=== PATIENT | female | born 1955 | race African-American/Black ===

== ENCOUNTER 2021-02-21 22:30 | Inpatient (IN) | payer MEDICARE, MEDICAID ==
[~2021-02-21] VITALS: Ht 167.6 cm; Wt 82.6 kg
[2021-02-21 22:30] VITALS: BP_SYST 111; BP_SYST 115; BP_DIAS 60
[~2021-02-21 22:30] MED LIST: ALBU18HF2 IH; ASPI-867 MT; DICL100G31 TP; ERGO2000; FERR325T6 MT; FLUT1DIS6 INH; GABA800T97 MT; HYDR-4067 MT; LIRA0.6P SQ; LIRA0.6P2 SQ; LUBI24CA5 MT; MONT10TA32 MT; OMEP10CA5 MT; PROM25TA13 MT; ROSU5TAB MT
[2021-02-21] MEDS ORDERED: ONDANSETRON HCL 4MG/2ML INJ IV PRN (23:15)
[2021-02-21] MEDS ORDERED: ZOLPIDEM TARTRATE 5MG TABLET PO PRN (23:15)
[2021-02-21] MEDS ORDERED: CLONIDINE 0.1MG TABLET PO PRN (23:15)
[2021-02-21] MEDS ORDERED: GUAIFENESIN 200MG/10ML SUGAR FREE UDC PO PRN (23:15)
[2021-02-21] MEDS ORDERED: IPRATROPIUM/ALBUTEROL 0.5-3(2.5)MG/3ML NEB HHN PRN (23:15)
[2021-02-21] MEDS ORDERED: DEXTROSE 50% WATER 50ML SYRINGE IV PRN (23:45)
[2021-02-22] MEDS: BLOOD SUGAR DIAGNOSTIC STRIP TEST SCH ×4 (06:42→21:04)
[2021-02-22] MEDS: SODIUM CHLORIDE 0.9% INJ 3ML FLUSH IVF SCH ×3 (06:51→21:37)
[2021-02-22 08:12] VITALS: BP 110/67
[2021-02-22] MEDS: INSULIN LISPRO 100 UNITS/ML SUBCUT SCH ×4 (09:00→21:37)
[2021-02-22] MEDS ORDERED: FAMOTIDINE 20MG/2ML VIAL IV SCH (09:00)
[2021-02-22] MEDS: ASPIRIN 81MG EC TABLET PO SCH (09:03)
[2021-02-22] MEDS: FUROSEMIDE 40MG TABLET PO SCH (09:03)
[2021-02-22] MEDS: FAMOTIDINE 20MG TABLET PO SCH (09:03)
[2021-02-22] MEDS: SPIRONOLACTONE 25MG TABLET PO SCH (09:03)
[2021-02-22] MEDS: ENOXAPARIN 40MG/0.4ML SYR SUBCUT SCH (09:03)
[2021-02-22] MEDS: CARVEDILOL 12.5MG TABLET PO SCH ×2 (09:04→21:01)
[2021-02-22] MEDS: LOSARTAN POTASSIUM 50 MG TABLET PO SCH ×2 (10:26→21:01)
[2021-02-22] MEDS: ACETAMINOPHEN 325MG TABLET PO PRN ×2 (10:29→21:03)
[2021-02-22 12:54] LABS: HEMATOCRIT. 32.7 % (36.0-48.0); HEMOGLOBIN. 10.9 g/dL (12.0-16.0); MEAN CORPUSCULAR HEMOGLOBIN 27.9 pg (28.0-32.0); MEAN CORPUSCULAR VOLUME 83.6 fL (81.0-99.0); MEAN PLATELET VOLUME 10.2 fl (7.4-10.4); PLATELET 149 x1000/uL (130-400); RED BLOOD CELL COUNT 3.92 mill/uL (4.2-5.4); RED CELL DISTRIBUTION WIDTH 21.7 % (11.6-14.6)
[2021-02-22 13:04] LABS: CHLORIDE 104 mEq/L (98-107)
[2021-02-22 17:59] LABS: PLATELET ESTIMATE NORMAL
[2021-02-22 18:08] LABS: VITAMIN B12 SERUM 1485 pg/mL (211-911)
[2021-02-22] MEDS ORDERED: POTASSIUM CHLORIDE 20MEQ TABLET SR PO NR ×2 (18:15→22:00)
[2021-02-22] MEDS ORDERED: BISACODYL 10MG SUPP PR PRN (19:30)
[2021-02-22 20:00] VITALS: BP 129/63
[2021-02-22] MEDS ORDERED: MAGNESIUM 2 G PREMIX 50 ML IV NR (20:00)
[2021-02-22] MEDS ORDERED: QUETIAPINE FUMARATE 50MG TABLET PO SCH ×3 (21:00)
[2021-02-22] MEDS: LACTULOSE 20G/30ML UDC PO PRN (21:03)
[2021-02-22 23:11] VITALS: BP 129/63
[2021-02-23] MEDS: BLOOD SUGAR DIAGNOSTIC STRIP TEST SCH ×4 (07:00→20:41)
[2021-02-23 07:48] VITALS: BP 139/73
[2021-02-23] MEDS: ASPIRIN 81MG EC TABLET PO SCH (08:56)
[2021-02-23] MEDS: FUROSEMIDE 40MG TABLET PO SCH (08:56)
[2021-02-23] MEDS: SENNOSIDES/DOCUSATE SOD 8.6/50MG TABLET PO PRN (08:57)
[2021-02-23] MEDS: LOSARTAN POTASSIUM 50 MG TABLET PO SCH ×2 (08:57→20:35)
[2021-02-23] MEDS: FAMOTIDINE 20MG TABLET PO SCH (08:57)
[2021-02-23] MEDS: SPIRONOLACTONE 25MG TABLET PO SCH (08:57)
[2021-02-23] MEDS: INSULIN LISPRO 100 UNITS/ML SUBCUT SCH ×4 (09:00→20:41)
[2021-02-23] MEDS: CARVEDILOL 12.5MG TABLET PO SCH (10:10)
[2021-02-23] MEDS: ENOXAPARIN 40MG/0.4ML SYR SUBCUT SCH (10:19)
[2021-02-23] MEDS: LACTULOSE 20G/30ML UDC PO PRN (12:46)
[2021-02-23] MEDS: SODIUM CHLORIDE 0.9% INJ 3ML FLUSH IVF SCH ×2 (13:08→20:41)
[2021-02-23 20:00] VITALS: BP 173/100
[2021-02-23] MEDS: CARVEDILOL 6.25 MG TABLET PO SCH (20:41)
[2021-02-24] MEDS: BLOOD SUGAR DIAGNOSTIC STRIP TEST SCH ×4 (06:20→20:40)
[2021-02-24] MEDS: SODIUM CHLORIDE 0.9% INJ 3ML FLUSH IVF SCH ×3 (06:35→20:41)
[2021-02-24] MEDS: INSULIN LISPRO 100 UNITS/ML SUBCUT SCH ×4 (07:33→20:40)
[2021-02-24 07:53] VITALS: BP 145/108
[2021-02-24] MEDS: ASPIRIN 81MG EC TABLET PO SCH (08:48)
[2021-02-24] MEDS: FUROSEMIDE 40MG TABLET PO SCH (08:48)
[2021-02-24] MEDS: LOSARTAN POTASSIUM 50 MG TABLET PO SCH ×2 (08:48→20:36)
[2021-02-24] MEDS: ENOXAPARIN 40MG/0.4ML SYR SUBCUT SCH (08:48)
[2021-02-24] MEDS: FAMOTIDINE 20MG TABLET PO SCH (08:48)
[2021-02-24] MEDS: SPIRONOLACTONE 25MG TABLET PO SCH (08:48)
[2021-02-24] MEDS: CARVEDILOL 6.25 MG TABLET PO SCH ×2 (08:49→20:36)
[2021-02-24] MEDS: ACETAMINOPHEN 325MG TABLET PO PRN (08:49)
[2021-02-24] MEDS ORDERED: NA PHOS,M-B/NA PHOS,DI-BA ENEMA 118ML PR PRN (09:00)
[2021-02-24 20:00] VITALS: BP 119/78
[2021-02-24] MEDS: QUETIAPINE FUMARATE 50MG TABLET PO SCH (20:35)
[2021-02-25] MEDS: ACETAMINOPHEN 325MG TABLET PO PRN ×2 (04:02→19:22)
[2021-02-25] MEDS: DIPHENHYDRAMINE 50MG/ML VIAL IV PRN ×2 (06:38→19:22)
[2021-02-25] MEDS: BLOOD SUGAR DIAGNOSTIC STRIP TEST SCH ×4 (06:42→21:45)
[2021-02-25] MEDS: SODIUM CHLORIDE 0.9% INJ 3ML FLUSH IVF SCH ×3 (06:42→21:45)
[2021-02-25] MEDS: INSULIN LISPRO 100 UNITS/ML SUBCUT SCH ×4 (06:42→21:00)
[2021-02-25 08:00] VITALS: BP 119/62
[2021-02-25] MEDS: ENOXAPARIN 40MG/0.4ML SYR SUBCUT SCH (09:22)
[2021-02-25] MEDS: FUROSEMIDE 40MG TABLET PO SCH (09:22)
[2021-02-25] MEDS: ASPIRIN 81MG EC TABLET PO SCH (09:22)
[2021-02-25] MEDS: CARVEDILOL 6.25 MG TABLET PO SCH ×2 (09:22→20:52)
[2021-02-25] MEDS: LOSARTAN POTASSIUM 50 MG TABLET PO SCH ×2 (09:23→20:53)
[2021-02-25] MEDS: FAMOTIDINE 20MG TABLET PO SCH (09:23)
[2021-02-25] MEDS: SPIRONOLACTONE 25MG TABLET PO SCH (09:23)
[2021-02-25] MEDS: LACTULOSE 20G/30ML UDC PO PRN (14:00)
[2021-02-25 14:41] LABS: CHLORIDE 103 mEq/L (98-107)
[2021-02-25 20:00] VITALS: BP 146/91
[2021-02-25] MEDS: DICLOFENAC SODIUM 75MG DR (EC) TABLET PO SCH (20:51)
[2021-02-25] MEDS: QUETIAPINE FUMARATE 50MG TABLET PO SCH (20:52)
[2021-02-26] MEDS: DIPHENHYDRAMINE 50MG/ML VIAL IV PRN (05:29)
[2021-02-26] MEDS: ACETAMINOPHEN 325MG TABLET PO PRN (05:35)
[2021-02-26] MEDS: SODIUM CHLORIDE 0.9% INJ 3ML FLUSH IVF SCH ×2 (06:17→14:00)
[2021-02-26] MEDS: BLOOD SUGAR DIAGNOSTIC STRIP TEST SCH ×4 (06:59→21:05)
[2021-02-26 08:01] VITALS: BP 136/65
[2021-02-26] MEDS: INSULIN LISPRO 100 UNITS/ML SUBCUT SCH ×4 (09:00→21:00)
[2021-02-26] MEDS: LOSARTAN POTASSIUM 50 MG TABLET PO SCH ×2 (09:16→20:40)
[2021-02-26] MEDS: FAMOTIDINE 20MG TABLET PO SCH (09:16)
[2021-02-26] MEDS: SPIRONOLACTONE 25MG TABLET PO SCH (09:16)
[2021-02-26] MEDS: ASPIRIN 81MG EC TABLET PO SCH (09:16)
[2021-02-26] MEDS: FUROSEMIDE 40MG TABLET PO SCH (09:17)
[2021-02-26] MEDS: CARVEDILOL 6.25 MG TABLET PO SCH (09:17)
[2021-02-26] MEDS: DICLOFENAC SODIUM 75MG DR (EC) TABLET PO SCH ×2 (09:17→20:40)
[2021-02-26] MEDS: ENOXAPARIN 40MG/0.4ML SYR SUBCUT SCH (09:21)
[2021-02-26 20:00] VITALS: BP 122/92
[2021-02-26] MEDS: GABAPENTIN 300MG CAPSULE PO SCH (20:40)
[2021-02-26] MEDS: QUETIAPINE FUMARATE 50MG TABLET PO SCH (20:41)
[2021-02-26] MEDS: SODIUM CHLORIDE 0.9% INJ 10ML FLUSH IVF SCH (21:04)
[2021-02-27] MEDS: SODIUM CHLORIDE 0.9% INJ 10ML FLUSH IVF SCH ×3 (06:32→21:20)
[2021-02-27] MEDS: BLOOD SUGAR DIAGNOSTIC STRIP TEST SCH ×4 (06:50→21:16)
[2021-02-27 08:00] VITALS: BP 112/67
[2021-02-27] MEDS: ASPIRIN 81MG EC TABLET PO SCH (08:27)
[2021-02-27] MEDS: FUROSEMIDE 40MG TABLET PO SCH (08:27)
[2021-02-27] MEDS: SPIRONOLACTONE 25MG TABLET PO SCH (08:27)
[2021-02-27] MEDS: LOSARTAN POTASSIUM 50 MG TABLET PO SCH ×2 (08:28→21:00)
[2021-02-27] MEDS: FAMOTIDINE 20MG TABLET PO SCH (08:28)
[2021-02-27] MEDS: ENOXAPARIN 40MG/0.4ML SYR SUBCUT SCH (08:28)
[2021-02-27] MEDS: DICLOFENAC SODIUM 75MG DR (EC) TABLET PO SCH ×2 (08:28→21:16)
[2021-02-27] MEDS: INSULIN LISPRO 100 UNITS/ML SUBCUT SCH ×4 (08:29→21:00)
[2021-02-27] MEDS: ACETAMINOPHEN 325MG TABLET PO PRN (14:38)
[2021-02-27 15:26] LABS: BASOPHILS % 0.9 % (0.0-2.0); EOSINOPHILS % 2.8 % (0.0-5.0); HEMATOCRIT. 33.5 % (36.0-48.0); HEMOGLOBIN. 11.3 g/dL (12.0-16.0); LYMPHOCYTES % 47.1 % (20.0-50.0); MEAN CORPUSCULAR HEMOGLOBIN 28.1 pg (28.0-32.0); MEAN CORPUSCULAR VOLUME 83.6 fL (81.0-99.0); MEAN PLATELET VOLUME 9.9 fl (7.4-10.4); MONOCYTES % 14.9 % (2.0-8.0); NEUTROPHILS % 34.3 % (40.0-76.0); PLATELET 139 x1000/uL (130-400); RED BLOOD CELL COUNT 4.01 mill/uL (4.2-5.4); RED CELL DISTRIBUTION WIDTH 22.3 % (11.6-14.6)
[2021-02-27 20:00] VITALS: BP 140/77
[2021-02-27] MEDS: GABAPENTIN 300MG CAPSULE PO SCH (21:15)
[2021-02-27] MEDS: QUETIAPINE FUMARATE 50MG TABLET PO SCH (21:16)
[2021-02-28] MEDS: BLOOD SUGAR DIAGNOSTIC STRIP TEST SCH ×4 (06:14→21:00)
[2021-02-28] MEDS: SODIUM CHLORIDE 0.9% INJ 10ML FLUSH IVF SCH ×3 (06:14→22:42)
[2021-02-28] MEDS: INSULIN LISPRO 100 UNITS/ML SUBCUT SCH ×4 (06:15→21:00)
[2021-02-28 08:09] VITALS: BP 132/84
[2021-02-28 08:20] VITALS: BP 122/80
[2021-02-28] MEDS: DICLOFENAC SODIUM 75MG DR (EC) TABLET PO SCH ×2 (08:23→20:43)
[2021-02-28] MEDS: LOSARTAN POTASSIUM 50 MG TABLET PO SCH ×2 (08:23→20:43)
[2021-02-28] MEDS: FUROSEMIDE 40MG TABLET PO SCH (08:23)
[2021-02-28] MEDS: FAMOTIDINE 20MG TABLET PO SCH (08:24)
[2021-02-28] MEDS: ASPIRIN 81MG EC TABLET PO SCH (08:24)
[2021-02-28] MEDS: SPIRONOLACTONE 25MG TABLET PO SCH (08:24)
[2021-02-28] MEDS: ENOXAPARIN 40MG/0.4ML SYR SUBCUT SCH (08:24)
[2021-02-28] MEDS: LACTULOSE 20G/30ML UDC PO PRN (08:24)
[2021-02-28] MEDS: ACETAMINOPHEN 325MG TABLET PO PRN ×2 (08:25→20:43)
[2021-02-28 20:00] VITALS: BP 137/81
[2021-02-28] MEDS: SENNOSIDES/DOCUSATE SOD 8.6/50MG TABLET PO PRN (20:42)
[2021-02-28] MEDS: GABAPENTIN 300MG CAPSULE PO SCH (20:43)
[2021-03-01] MEDS: DIPHENHYDRAMINE 50MG/ML VIAL IV PRN (01:44)
[2021-03-01] MEDS: ACETAMINOPHEN 325MG TABLET PO PRN ×2 (01:45→08:39)
[2021-03-01] MEDS: SODIUM CHLORIDE 0.9% INJ 10ML FLUSH IVF SCH ×3 (06:28→22:21)
[2021-03-01] MEDS: BLOOD SUGAR DIAGNOSTIC STRIP TEST SCH ×4 (06:29→21:00)
[2021-03-01] MEDS: INSULIN LISPRO 100 UNITS/ML SUBCUT SCH ×4 (07:08→22:22)
[2021-03-01 07:58] VITALS: BP 157/115
[2021-03-01] MEDS: ASPIRIN 81MG EC TABLET PO SCH (08:19)
[2021-03-01] MEDS: DICLOFENAC SODIUM 75MG DR (EC) TABLET PO SCH ×2 (08:19→22:17)
[2021-03-01] MEDS: FUROSEMIDE 40MG TABLET PO SCH (08:19)
[2021-03-01] MEDS: SPIRONOLACTONE 25MG TABLET PO SCH (08:19)
[2021-03-01] MEDS: LOSARTAN POTASSIUM 50 MG TABLET PO SCH ×2 (08:19→22:20)
[2021-03-01] MEDS: FAMOTIDINE 20MG TABLET PO SCH (08:19)
[2021-03-01] MEDS: LACTULOSE 20G/30ML UDC PO PRN (08:23)
[2021-03-01] MEDS: ENOXAPARIN 40MG/0.4ML SYR SUBCUT SCH (08:23)
[2021-03-01 10:08] VITALS: BP 150/102
[2021-03-01] MEDS ORDERED: CARVEDILOL 6.25 MG TABLET PO NR (10:24)
[2021-03-01] MEDS ORDERED: FUROSEMIDE 100MG/10ML VIAL IVP NR (10:30)
[2021-03-01] MEDS ORDERED: POTASSIUM CHLORIDE 20MEQ TABLET SR PO NR (10:30)
[2021-03-01] MEDS ORDERED: QUETIAPINE FUMARATE 50MG TABLET PO NR (11:45)
[2021-03-01 17:51] LABS: CLARITY URINE CLEAR (CLEAR); COLOR URINE YELLOW (YELLOW); KETONES URINE NEGATIVE (NEGATIVE); LEUKOCYTE ESTERASE URINE NEGATIVE (NEGATIVE); NITRITE URINE NEGATIVE (NEGATIVE); OCCULT BLOOD URINE NEGATIVE (NEGATIVE); PROTEIN URINE NEGATIVE (NEGATIVE); SPECIFIC GRAVITY URINE 1.009 (1.005-1.030)
[2021-03-01] MEDS: SENNOSIDES/DOCUSATE SOD 8.6/50MG TABLET PO PRN (17:58)
[2021-03-01 20:00] VITALS: BP 139/97
[2021-03-01] MEDS: GABAPENTIN 300MG CAPSULE PO SCH (22:15)
[2021-03-01] MEDS: CARVEDILOL 6.25 MG TABLET PO SCH (22:17)
[2021-03-01] MEDS: QUETIAPINE FUMARATE 50MG TABLET PO SCH (22:18)
[2021-03-02] MEDS: SODIUM CHLORIDE 0.9% INJ 10ML FLUSH IVF SCH ×3 (06:01→21:03)
[2021-03-02] MEDS: BLOOD SUGAR DIAGNOSTIC STRIP TEST SCH ×4 (06:04→20:45)
[2021-03-02 08:00] VITALS: BP 108/81
[2021-03-02] MEDS: CARVEDILOL 6.25 MG TABLET PO SCH ×2 (09:00→20:44)
[2021-03-02] MEDS: LOSARTAN POTASSIUM 50 MG TABLET PO SCH ×2 (09:00→20:44)
[2021-03-02] MEDS: INSULIN LISPRO 100 UNITS/ML SUBCUT SCH ×4 (09:00→21:00)
[2021-03-02] MEDS: ASPIRIN 81MG EC TABLET PO SCH (09:07)
[2021-03-02] MEDS: MAGNESIUM/ALUMINUM HYDROXIDE/SIMETHICONE 30ML UDC PO PRN ×2 (09:07→09:15)
[2021-03-02] MEDS: ENOXAPARIN 40MG/0.4ML SYR SUBCUT SCH (09:07)
[2021-03-02] MEDS: FAMOTIDINE 20MG TABLET PO SCH (09:08)
[2021-03-02] MEDS: DICLOFENAC SODIUM 75MG DR (EC) TABLET PO SCH ×2 (09:08→20:44)
[2021-03-02] MEDS: FUROSEMIDE 40MG TABLET PO SCH (09:08)
[2021-03-02] MEDS: SPIRONOLACTONE 25MG TABLET PO SCH (09:09)
[2021-03-02] MEDS: LACTULOSE 20G/30ML UDC PO PRN (09:19)
[2021-03-02 20:00] VITALS: BP 135/68
[2021-03-02] MEDS: GABAPENTIN 300MG CAPSULE PO SCH (20:44)
[2021-03-02] MEDS: QUETIAPINE FUMARATE 50MG TABLET PO SCH (21:02)
[2021-03-02] MEDS: DIPHENHYDRAMINE 50MG/ML VIAL IV PRN (21:04)
[2021-03-03] MEDS: SODIUM CHLORIDE 0.9% INJ 10ML FLUSH IVF SCH ×3 (05:46→21:15)
[2021-03-03] MEDS: BLOOD SUGAR DIAGNOSTIC STRIP TEST SCH ×4 (06:09→20:21)
[2021-03-03 08:00] VITALS: BP 125/70
[2021-03-03] MEDS: ASPIRIN 81MG EC TABLET PO SCH (08:39)
[2021-03-03] MEDS: DICLOFENAC SODIUM 75MG DR (EC) TABLET PO SCH ×2 (08:39→20:21)
[2021-03-03] MEDS: FAMOTIDINE 20MG TABLET PO SCH (08:39)
[2021-03-03] MEDS: LOSARTAN POTASSIUM 50 MG TABLET PO SCH ×2 (08:40→20:20)
[2021-03-03] MEDS: SPIRONOLACTONE 25MG TABLET PO SCH (08:40)
[2021-03-03] MEDS: CARVEDILOL 6.25 MG TABLET PO SCH ×2 (08:40→20:20)
[2021-03-03] MEDS: ENOXAPARIN 40MG/0.4ML SYR SUBCUT SCH (08:41)
[2021-03-03] MEDS: FUROSEMIDE 40MG TABLET PO SCH (08:41)
[2021-03-03] MEDS: INSULIN LISPRO 100 UNITS/ML SUBCUT SCH ×4 (08:42→21:15)
[2021-03-03 20:00] VITALS: BP 98/61
[2021-03-03] MEDS: GABAPENTIN 300MG CAPSULE PO SCH (20:20)
[2021-03-03] MEDS: QUETIAPINE FUMARATE 50MG TABLET PO SCH (20:21)
[2021-03-03 22:04] VITALS: BP 106/76
[2021-03-04] MEDS: SODIUM CHLORIDE 0.9% INJ 10ML FLUSH IVF SCH (05:56)
[2021-03-04] MEDS: BLOOD SUGAR DIAGNOSTIC STRIP TEST SCH (05:56)
[2021-03-04] MEDS: INSULIN LISPRO 100 UNITS/ML SUBCUT SCH (05:56)
[2021-03-04 08:00] VITALS: BP 106/76
[2021-03-04] MEDS: DICLOFENAC SODIUM 75MG DR (EC) TABLET PO SCH (08:25)
[2021-03-04] MEDS: ASPIRIN 81MG EC TABLET PO SCH (08:25)
[2021-03-04] MEDS: SPIRONOLACTONE 25MG TABLET PO SCH (08:25)
[2021-03-04] MEDS: FUROSEMIDE 40MG TABLET PO SCH (08:26)
[2021-03-04] MEDS: FAMOTIDINE 20MG TABLET PO SCH (08:26)
[2021-03-04] MEDS: LOSARTAN POTASSIUM 50 MG TABLET PO SCH (08:26)
[2021-03-04] MEDS: CARVEDILOL 6.25 MG TABLET PO SCH (08:26)
[2021-03-04] MEDS: ENOXAPARIN 40MG/0.4ML SYR SUBCUT SCH (08:38)
[2021-03-04] MEDS ORDERED: FURO-151 PO (08:44)
[2021-03-04] MEDS ORDERED: GABA300C PO (08:45)
[2021-03-04] MEDS ORDERED: LOSA50TA41 PO (08:46)
[2021-03-04] MEDS ORDERED: QUET400T PO (08:48)
[2021-03-04] MEDS ORDERED: COR6 PO (08:49)
[2021-03-04] MEDS ORDERED: DICL100T2 PO (08:51)
[2021-03-04] MEDS ORDERED: FAMO-135 PO (08:52)
[2021-03-04] MEDS ORDERED: SPIR25TA PO (08:53)
== END 2021-03-04 10:20 | disposition home health service (06) | DRG 947 ==
PROVIDERS: ADMIT Psychiatry & Neurology Neurology; ATTEND Internal Medicine
DX: R53.81 Other malaise (principal); I50.43 Acute on chronic combined systolic (congestive) and diastolic (congestive) heart failure; J96.01 Acute respiratory failure with hypoxia; E46 Unspecified protein-calorie malnutrition; I42.9 Cardiomyopathy, unspecified; E11.40 Type 2 diabetes mellitus with diabetic neuropathy, unspecified; E78.5 Hyperlipidemia, unspecified; E83.42 Hypomagnesemia; E87.5 Hyperkalemia; E87.6 Hypokalemia; F09 Unspecified mental disorder due to known physiological condition; F39 Unspecified mood [affective] disorder; F41.1 Generalized anxiety disorder; I11.0 Hypertensive heart disease with heart failure; I27.20 Pulmonary hypertension, unspecified; J44.9 Chronic obstructive pulmonary disease, unspecified; K80.20 Calculus of gallbladder without cholecystitis without obstruction; M19.90 Unspecified osteoarthritis, unspecified site
CPT/HCPCS: 36415; 80048; 80053; 81003; 82607; 82962; 83036; 83540; 83550; 83735; 84100; 84443; 85025; 92523; 93005; 97110; 97112; 97116; 97162; 97166; 97530; 97535; J1200; J1650; J1815; J1940; J3475

== ENCOUNTER 2021-03-07 20:24 | Inpatient (IN) | payer MEDICARE, MEDICAID ==
[~2021-03-07] VITALS: Ht 167.6 cm; Wt 86.2 kg
[~2021-03-07 20:24] MED LIST changes: +COR6 PO; -DICL100G31 TP; +DICL100T2 PO; -ERGO2000; +FAMO-135 PO; +FURO-151 PO; +GABA300C PO; -GABA800T97 MT; -HYDR-4067 MT; +LOSA50TA41 PO; -PROM25TA13 MT; +QUET400T PO; +SPIR25TA PO
[2021-03-07] MEDS ORDERED: ONDANSETRON HCL 4MG/2ML INJ IV STA (20:42)
[2021-03-07] MEDS ORDERED: MORPHINE SULFATE 4 MG/ML CPJ (NOT FOR IM USE) IV STA (20:42)
[2021-03-07 21:25] LABS: BASOPHILS % 0.5 % (0.0-2.0); EOSINOPHILS % 0.1 % (0.0-5.0); HEMATOCRIT. 34.6 % (36.0-48.0); HEMOGLOBIN. 11.4 g/dL (12.0-16.0); LYMPHOCYTES % 20.3 % (20.0-50.0); MEAN CORPUSCULAR HEMOGLOBIN 27.6 pg (28.0-32.0); MEAN CORPUSCULAR VOLUME 83.9 fL (81.0-99.0); MEAN PLATELET VOLUME 9.2 fl (7.4-10.4); MONOCYTES % 10.7 % (2.0-8.0); NEUTROPHILS % 68.4 % (40.0-76.0); PLATELET 189 x1000/uL (130-400); RED BLOOD CELL COUNT 4.12 mill/uL (4.2-5.4); RED CELL DISTRIBUTION WIDTH 21.7 % (11.6-14.6)
[2021-03-07 21:32] LABS: CHLORIDE 103 mEq/L (98-107)
[2021-03-07 21:37] LABS: ETHANOL BLOOD < 10 mg/dL
[2021-03-07] MEDS ORDERED: ASPIRIN 325MG EC TABLET PO ONE (22:45)
[2021-03-07] MEDS ORDERED: FUROSEMIDE 40MG/4ML VIAL IVP ONE (22:45)
[2021-03-07] MEDS ORDERED: IOHEXOL-300 100 ML BOTTLE ONE (23:31)
[2021-03-08] MEDS ORDERED: CLONIDINE 0.1MG TABLET PO PRN (01:00)
[2021-03-08] MEDS ORDERED: DIPHENHYDRAMINE 50MG/ML VIAL IV PRN (01:00)
[2021-03-08] MEDS ORDERED: ACETAMINOPHEN 325MG TABLET PO PRN ×2 (01:00)
[2021-03-08] MEDS ORDERED: ZOLPIDEM TARTRATE 5MG TABLET PO PRN (01:00)
[2021-03-08] MEDS ORDERED: DEXTROSE 50% WATER 50ML SYRINGE IV PRN (01:00)
[2021-03-08] MEDS ORDERED: IPRATROPIUM/ALBUTEROL 0.5-3(2.5)MG/3ML NEB HHN PRN (01:00)
[2021-03-08] MEDS ORDERED: ONDANSETRON HCL 4MG/2ML INJ IV PRN (01:00)
[2021-03-08 01:05] VITALS: BP 139/84
[2021-03-08] MEDS ORDERED: SODIUM CHLORIDE 0.9% 1,000 ML IV SCH (01:30)
[2021-03-08 04:00] VITALS: BP 119/82
[2021-03-08] MEDS: INSULIN LISPRO 100 UNITS/ML SUBCUT SCH ×4 (06:13→21:00)
[2021-03-08] MEDS: BLOOD SUGAR DIAGNOSTIC STRIP TEST SCH ×4 (06:13→21:00)
[2021-03-08] MEDS: SODIUM CHLORIDE 0.9% INJ 3ML FLUSH IVF SCH ×3 (06:16→22:00)
[2021-03-08 08:00] VITALS: BP 141/87
[2021-03-08] MEDS: ASPIRIN 81MG EC TABLET PO SCH (08:45)
[2021-03-08] MEDS: LOSARTAN POTASSIUM 50 MG TABLET PO SCH (08:46)
[2021-03-08] MEDS: CARVEDILOL 6.25 MG TABLET PO SCH ×2 (08:46→21:12)
[2021-03-08 12:00] VITALS: BP 114/86
[2021-03-08] MEDS ORDERED: LIDOCAINE HCL/PF 1% 2ML VIAL ONE (15:12)
[2021-03-08 16:00] VITALS: BP 130/90
[2021-03-08 16:12] LABS: BASOPHILS % 0.7 % (0.0-2.0); EOSINOPHILS % 0.9 % (0.0-5.0); HEMATOCRIT. 34.7 % (36.0-48.0); HEMOGLOBIN. 11.6 g/dL (12.0-16.0); MEAN CORPUSCULAR HEMOGLOBIN 27.9 pg (28.0-32.0); MEAN CORPUSCULAR VOLUME 83.7 fL (81.0-99.0); MEAN PLATELET VOLUME 9.1 fl (7.4-10.4); MONOCYTES % 12.3 % (2.0-8.0); NEUTROPHILS % 63.1 % (40.0-76.0); PLATELET 185 x1000/uL (130-400); RED BLOOD CELL COUNT 4.14 mill/uL (4.2-5.4); RED CELL DISTRIBUTION WIDTH 21.4 % (11.6-14.6)
[2021-03-08 16:22] LABS: CHLORIDE 102 mEq/L (98-107)
[2021-03-08] MEDS ORDERED: FUROSEMIDE 40MG/4ML VIAL IVP SCH (16:45)
[2021-03-08 17:39] LABS: BG BASE EXCESS -0.7 mmol/L (-2.0-2.0); BG DEOXYHEMOGLOBIN 2.5 % (0.0-5.0); BG FRACTION INSPIRED OXYGEN 21; BG HCO3 ACT 23.8 mmol/L (22.0-26.0); BG METHEMOGLOBIN 0.3 % (0.0-1.5); BG OXYGEN SATURATION 97.5 % (92.0-98.5); BG OXYHEMOGLOBIN 96.2 % (94.0-97.0); BG PCO2 38.6 mmHg (35.0-45.0); BG PH 7.408 (7.350-7.450); BG PO2 99.6 mmHg (75.0-100.0); BG SAMPLE SITE LEFT RADIAL; BG TOTAL HEMOGLOBIN 12.4 g/dL (12.0-18.0); BG VENT MODE ROOM AIR
[2021-03-08 20:00] VITALS: BP 131/81
[2021-03-08] MEDS: QUETIAPINE FUMARATE 50MG TABLET PO SCH (21:13)
[2021-03-09] VITALS (7 sets, daily range): BP systolic 113–139; BP diastolic 67–85
[2021-03-09] MEDS: SODIUM CHLORIDE 0.9% INJ 3ML FLUSH IVF SCH ×3 (06:00→21:02)
[2021-03-09] MEDS: BLOOD SUGAR DIAGNOSTIC STRIP TEST SCH ×4 (06:35→21:08)
[2021-03-09] MEDS: INSULIN LISPRO 100 UNITS/ML SUBCUT SCH ×4 (06:37→21:02)
[2021-03-09] MEDS: LOSARTAN POTASSIUM 50 MG TABLET PO SCH (08:07)
[2021-03-09] MEDS: CARVEDILOL 6.25 MG TABLET PO SCH ×2 (08:08→20:58)
[2021-03-09] MEDS: ASPIRIN 81MG EC TABLET PO SCH (08:08)
[2021-03-09] MEDS: QUETIAPINE FUMARATE 50MG TABLET PO SCH (21:00)
[2021-03-10] VITALS: BP 117/79
[2021-03-10 04:00] VITALS: BP 108/75
[2021-03-10] MEDS: SODIUM CHLORIDE 0.9% INJ 3ML FLUSH IVF SCH ×3 (06:08→22:00)
[2021-03-10] MEDS: BLOOD SUGAR DIAGNOSTIC STRIP TEST SCH ×4 (06:17→20:28)
[2021-03-10] MEDS: INSULIN LISPRO 100 UNITS/ML SUBCUT SCH ×4 (06:17→20:45)
[2021-03-10 08:00] VITALS: BP 131/81
[2021-03-10] MEDS: LOSARTAN POTASSIUM 50 MG TABLET PO SCH (08:29)
[2021-03-10] MEDS: ASPIRIN 81MG EC TABLET PO SCH (08:30)
[2021-03-10] MEDS: CARVEDILOL 6.25 MG TABLET PO SCH ×2 (08:30→20:28)
[2021-03-10 12:00] VITALS: BP 122/83
[2021-03-10 16:00] VITALS: BP 121/79
[2021-03-10 16:20] LABS: HEMATOCRIT. 40.3 % (36.0-48.0); HEMOGLOBIN. 12.6 g/dL (12.0-16.0); MEAN CORPUSCULAR HEMOGLOBIN 28.5 pg (28.0-32.0); MEAN CORPUSCULAR VOLUME 90.6 fL (81.0-99.0); MEAN PLATELET VOLUME 8.8 fl (7.4-10.4); PLATELET 130 x1000/uL (130-400); RED BLOOD CELL COUNT 4.44 mill/uL (4.2-5.4); RED CELL DISTRIBUTION WIDTH 22.6 % (11.6-14.6)
[2021-03-10 18:56] LABS: PLATELET ESTIMATE NORMAL
[2021-03-10] MEDS: QUETIAPINE FUMARATE 50MG TABLET PO SCH (20:28)
[2021-03-10 20:56] VITALS: BP 127/77
[2021-03-11] VITALS (8 sets, daily range): BP systolic 109–140; BP diastolic 72–88
[2021-03-11] MEDS: SODIUM CHLORIDE 0.9% INJ 3ML FLUSH IVF SCH ×2 (06:00→13:19)
[2021-03-11] MEDS: BLOOD SUGAR DIAGNOSTIC STRIP TEST SCH ×4 (06:19→19:41)
[2021-03-11] MEDS: INSULIN LISPRO 100 UNITS/ML SUBCUT SCH ×4 (06:19→20:41)
[2021-03-11 09:49] LABS: HEMATOCRIT 38.6 % (36.0-48.0); HEMOGLOBIN 12.8 g/dL (12.0-16.0); MEAN CORPUSCULAR HEMOGLOBIN 27.8 pg (28.0-32.0); MEAN CORPUSCULAR VOLUME 83.8 fL (81.0-99.0); PLATELET 159 x1000/uL (130-400); RED CELL DISTRIBUTION WIDTH 21.7 % (11.6-14.6)
[2021-03-11] MEDS: FUROSEMIDE 20MG/2ML VIAL IVP SCH (09:55)
[2021-03-11] MEDS: ASPIRIN 81MG EC TABLET PO SCH (09:56)
[2021-03-11] MEDS: LOSARTAN POTASSIUM 50 MG TABLET PO SCH (09:56)
[2021-03-11] MEDS: CARVEDILOL 6.25 MG TABLET PO SCH ×2 (09:58→20:38)
[2021-03-11 10:13] LABS: CHLORIDE 107 mEq/L (98-107)
[2021-03-11] MEDS: LORAZEPAM 0.5MG TABLET PO PRN (12:02)
[2021-03-12] MEDS: SODIUM CHLORIDE 0.9% INJ 3ML FLUSH IVF SCH ×3 (00:18→15:18)
[2021-03-12] MEDS: QUETIAPINE FUMARATE 50MG TABLET PO SCH (00:18)
[2021-03-12 00:30] VITALS: BP 139/98
[2021-03-12 04:00] VITALS: BP 96/67
[2021-03-12] MEDS: BLOOD SUGAR DIAGNOSTIC STRIP TEST SCH ×3 (05:55→17:10)
[2021-03-12] MEDS: INSULIN LISPRO 100 UNITS/ML SUBCUT SCH ×3 (05:58→17:40)
[2021-03-12 07:06] LABS: HEMATOCRIT 37.4 % (36.0-48.0); HEMOGLOBIN 12.3 g/dL (12.0-16.0); MEAN CORPUSCULAR HEMOGLOBIN 27.3 pg (28.0-32.0); MEAN CORPUSCULAR VOLUME 83.2 fL (81.0-99.0); PLATELET 164 x1000/uL (130-400); RED CELL DISTRIBUTION WIDTH 22.4 % (11.6-14.6)
[2021-03-12] MEDS ORDERED: OMEPRAZOLE 20MG CAPSULE EXTENDED RELEASE PO SCH (07:10)
[2021-03-12 07:13] LABS: CHLORIDE 108 mEq/L (98-107)
[2021-03-12 08:00] VITALS: BP 125/85
[2021-03-12] MEDS: FUROSEMIDE 20MG/2ML VIAL IVP SCH (08:27)
[2021-03-12] MEDS: CARVEDILOL 6.25 MG TABLET PO SCH (08:27)
[2021-03-12] MEDS: LOSARTAN POTASSIUM 50 MG TABLET PO SCH (08:28)
[2021-03-12] MEDS: ASPIRIN 81MG EC TABLET PO SCH (08:28)
[2021-03-12] MEDS: LORAZEPAM 0.5MG TABLET PO PRN (11:37)
[2021-03-12 12:00] VITALS: BP 131/92
[2021-03-12 16:00] VITALS: BP 150/100
[2021-03-12 16:18] VITALS: BP 131/92
== END 2021-03-12 20:15 | disposition home or self-care (01) | DRG 682 ==
LOC: ER 20:24 → EDBEDREQTM 22:46 → EDBEDREQ 22:46 → ENRESERV 23:34 → 8WST 03-08 01:07
PROVIDERS: ADMIT Internal Medicine; ATTEND Internal Medicine
DX: N17.9 Acute kidney failure, unspecified (principal); I50.23 Acute on chronic systolic (congestive) heart failure; I13.0 Hypertensive heart and chronic kidney disease with heart failure and stage 1 through stage 4 chronic kidney disease, or unspecified chronic kidney disease; I42.9 Cardiomyopathy, unspecified; E11.22 Type 2 diabetes mellitus with diabetic chronic kidney disease; E78.5 Hyperlipidemia, unspecified; E86.0 Dehydration; I27.20 Pulmonary hypertension, unspecified; J44.9 Chronic obstructive pulmonary disease, unspecified; R00.1 Bradycardia, unspecified; R07.89 Other chest pain; Z91.048 Other nonmedicinal substance allergy status; F31.9 Bipolar disorder, unspecified; N18.9 Chronic kidney disease, unspecified; Z79.4 Long term (current) use of insulin; Z79.82 Long term (current) use of aspirin; Z79.899 Other long term (current) drug therapy; Z87.891 Personal history of nicotine dependence; Z87.01 Personal history of pneumonia (recurrent)
CPT/HCPCS: 36415; 36600; 71045; 74177; 80048; 80053; 80320; 82375; 82805; 82962; 83605; 83735; 83880; 84484; 85025; 85027; 93005; 93970; 97162; 99285; C1893; J1815; J1940; J2270; J2405; J3490; Q9967; G0480